=== PATIENT | male | born 1970 | race Caucasian/White ===

== ENCOUNTER 2019-05-24 22:33 | Emergency (ER) | payer SELFPAY ==
[~2019-05-24] VITALS: Ht 185.4 cm; Wt 86.4 kg
[2019-05-24] MEDS ORDERED: HYDROXYZINE HYD50 M1 PO (23:00)
[2019-05-24 23:59] LABS: EOS # 0.1 (0.04-0.40); HEMATOCRIT 39.2 % (42.0-52.0); HEMOGLOBIN 13.3 g/dL (13.5-18.0); LYMPH# 1.2 (1.50-4.00); MEAN CELL VOLUME 90 fl (78-100); MEAN CORPUSCULAR HEMOGLOBIN 31 pg (27-31); MEAN CORPUSCULAR HGB CONC 34 g/dL (33-37); MEAN PLATELET VOLUME 11.2 fl (7.4-10.4); MONO # 0.7 (0.20-0.80); NEU # 4.6 (1.40-6.50); PLATELET COUNT 176 K/mm3 (130-400); RED BLOOD COUNT 4.35 M/mm3 (4.20-5.60); RED CELL DISTRIBUTION WIDTH 12.6 % (11.5-14.5); WHITE BLOOD COUNT 6.7 K/mm3 (4.8-10.8)
[2019-05-25] LABS: ALBUMIN 4.3 g/dL (3.5-5.0); POTASSIUM 3.9 mmol/L (3.5-5.1)
[2019-05-25 00:01] LABS: CALCIUM 9.1 mg/dL (8.3-10.5)
[2019-05-25 00:02] LABS: TOTAL PROTEIN 6.8 g/dL (6.4-8.3)
[2019-05-25 00:04] LABS: TOTAL BILIRUBIN 0.3 mg/dL (0.2-1.2)
[2019-05-25 00:39] LABS: URINE APPEARANCE CLEAR; URINE COLOR YELLOW
[2019-05-25 00:40] LABS: URINE BILIRUBIN NEGATIVE (NEGATIVE); URINE BLOOD NEGATIVE (NEGATIVE); URINE GLUCOSE NEGATIVE (NEGATIVE); URINE KETONE NEGATIVE (NEGATIVE); URINE LEUKOCYTE ESTERASE NEGATIVE (NEGATIVE); URINE NITRATE NEGATIVE (NEGATIVE); URINE PROTEIN(semi-quant) NEGATIVE (NEGATIVE); URINE UROBILINOGEN NORMAL (NORMAL); URINE WBC 0-1 /hpf (0-3)
[2019-05-25 01:38] VITALS: BP 138/84
== END 2019-05-25 01:38 | disposition home or self-care (01) ==
LOC: ED 22:33
PROVIDERS: Family Medicine
DX: F41.9 Anxiety disorder, unspecified (principal)